=== PATIENT | female | born 2000 | race African-American/Black ===

== ENCOUNTER 2023-05-25 17:41 | Observation (INO) ==
--- NOTE | 2023-05-25 17:49 | ED Triage Note ---
Date of Service May 25, 2023 History of Present Illness This patient was briefly evaluated while in triage. An abbreviated physical exam was performed. This patient is a 22-year-old Female who presents to the ED for evaluation of throat pain. She notes enlarged tonsils. Started yesterday but worsened today around 4pm. She feels dizzy and has been sleeping alot. Physical Exam GENERAL: 22 year old female. In no acute distress. SKIN: No lesions or rashes. THROAT: enlarged tonsils noted, 4+. HEART: Regular rate and rhythm. LUNGS: Clear to auscultation. NEURO: Alert and oriented. No deficits. MUSCULOSKELETAL: No deformities to inspection of the extremities. PSYCH: Patient is pleasant and answers all questions appropriately. Initial orders for labs and / or imaging were placed and patient was placed in the waiting area until a bed is available. Please see further documentation for the full ED course.
[2023-05-25 18:43] LABS: Basophils # (auto) 0.04 K/uL (0-0.2); Basophils % (auto) 0.3 %; Eosinophils # (auto) 0.01 K/uL (0-0.50); Eosinophils % (auto) 0.1 %; Hematocrit (blood only) 33.9 % (37.0-47.0); Immature Granulocytes # (auto) 0.07 K/uL (0.01-0.20); Immature Granulocytes % (auto) 0.5 %; Lymphocytes # (auto) 1.74 K/uL (1.2-3.4); Lymphocytes % (auto) 11.4 %; Mean Corpuscular Hemoglobin 25.3 pg (25.0-34.0); Mean Corpuscular Hgb Conc 32.4 g/dL (32.0-36.0); Mean Corpuscular Volume 77.9 fL (80.0-100.0); Mean Platelet Volume 10.5 fL (9.4-12.4); Monocytes % (auto) 11.2 %; Neutrophils # (auto) 11.64 K/uL (1.40-6.50); Neutrophils % (auto) 76.5 %; Platelet Count 357 K/uL (130-400); RDW Coefficient of Variation 17.2 % (11.5-14.5); RDW Standard Deviation 48.1 fL (36.4-46.3); Red Blood Count 4.35 M/uL (4.20-5.40)
[2023-05-25 18:51] LABS: Monotest Negative (Negative); Pregnancy Test, Serum Negative (Negative)
[2023-05-25 18:53] LABS: Albumin Level 4.2 gm/dl (3.4-5.0); BUN Creatinine Ratio 10.3 (10-20); Bilirubin,Total 0.4 mg/dl (0.2-1.0); Calcium 9.2 mg/dl (8.6-10.3); Creatinine Clr Calc Pharmacy 128.2 ml/min; Est GFR (African American) 125.1 ml/min; Est GFR (Non-African American) 107.9 ml/min; Globulin 4.2 gm/dl (2.5-4.0); Potassium 3.5 mmol/L (3.5-5.1); Total Protein 8.4 gm/dl (6.0-8.3)
[2023-05-25] MEDS ORDERED: AMPICILLIN/SULBACTAM SOD 3,000 MG in 0.9 % SODIUM CHLORIDE 100 ML IV STA (19:29)
[2023-05-25] MEDS ORDERED: dexAMETHasone**PF** 10 MG/ML VIAL IV ONE (19:29)
[2023-05-25] MEDS ORDERED: KETOROLAC TROMETHAMINE 15 MG/ML VIAL IV STA (19:29)
[2023-05-25] MEDS ORDERED: SODIUM CHLORIDE 0.9% 1000ML 1,000 ML IV SCH (19:30)
[2023-05-25] MEDS ORDERED: OPTIRAY 320 100ml IV ONE (20:19)
--- NOTE | 2023-05-25 20:36 | Emergency Department Note ---
History of Present Illness General Chief complaint: Throat Pain Stated complaint: SWOLLEN TONSILS Time Seen by Provider: 05/25/23 19:24 History of Present Illness Maximum Pain Intensity: 10 This is a 22-year-old female that presents to the emergency department via private vehicle with complaints of "swollen tonsils". Patient notes that yesterday she began with a sore throat. This has worsened since yesterday. She notes it is more asymmetric noting the right is more painful than the left. She notes decreased intake orally secondary to pain. She denies any pertinent past medical history. She notes history of knee surgery. No allergies. No fevers. She does note close contact with similar symptoms. Allergies Allergy/AdvReac Type Severity Reaction Status Date / Time No Known Allergies Allergy Verified 02/25/23 18:24 Past Med/Surg History Medical History No pertinent past medical history Surgical History H/O knee surgery Social History Smoking Status: Never smoker Preferred Language: Faroese Feels Safe at Home: Yes Review of Systems A total of 10 systems reviewed and were otherwise negative Physical Exam Vital Signs Vital Signs - 24 hr 05/25/23 17:46 05/25/23 21:23 05/25/23 22:49 Temperature 36.8 C 37.9 C H 37.2 C Temperature Source Temporal Artery Scan Oral Oral Pulse Rate 131 H Pulse Rate [Finger] 113 H 118 H Respiratory Rate 18 20 Respiratory Effort / Characteristics Non-Labored Non-Labored Spontaneous Respiratory Depth Normal Normal Respiratory Pattern Regular Blood Pressure 160/93 H Blood Pressure [Right Arm] 132/82 Blood Pressure Mean 115 Blood Pressure Mean [Right Arm] 98 Pulse Oximetry 100 98 98 Oxygen Delivery Method Room Air Room Air Room Air Sepsis Recent Fever Within 48 Hours No Sepsis New/Unexplained Change in Mental Status No Sepsis Action Taken by Nursing No Action Required 05/26/23 00:02 Temperature Temperature Source Pulse Rate Pulse Rate [Finger] 90 Respiratory Rate 20 Respiratory Effort / Characteristics Non-Labored Spontaneous Respiratory Depth Normal Respiratory Pattern Blood Pressure Blood Pressure [Right Arm] 110/64 Blood Pressure Mean Blood Pressure Mean [Right Arm] 79 Pulse Oximetry 97 Oxygen Delivery Method Room Air Sepsis Recent Fever Within 48 Hours Sepsis New/Unexplained Change in Mental Status Sepsis Action Taken by Nursing VITAL SIGNS - Vital signs and triage nursing notes were reviewed. Tachycardic, otherwise stable. GENERAL -22-year-old female appearing her stated age who is in no acute distress the patient is tired appearing. Communicates well with provider and answers questions appropriately. SKIN - Without rashes. No meningeal or petechial rash. HEAD - NC/AT. EYES - PERRL with EOMI bilaterally. Sclera anicteric. EARS - No deformities of external structures noted on gross examination bilaterally. External auditory canals without discharge or otorrhea. Tympanic membranes pearly singh without retraction or bulging. No fluid or purulent material visualized behind the TM. Handle of malleus, umbo, cone of light, pars tensa/flaccid all easily visualized. NOSE - Midline and without cyanosis. No epistaxis or purulent drainage noted. Septum midline without deviation or septal hematoma noted. MOUTH/OROPHARYNX - Without perioral cyanosis. Buccal mucosa pink and moist and without leukoplakia. There is a 4+ bilateral tonsillar hypertrophy with fullness of the right soft palate. There is no trismus. There is a muffled voice noted. There is no stridor or wheezing noted. Good dentition noted. NECK - Neck with FROM. Supple to palpation. Bilateral anterior cervical lymphadenopathy noted. No nuchal rigidity. LUNGS - Chest wall symmetric without accessory muscle use, intercostals retractions, or central cyanosis. Normal vesicular breath sounds CTA B/L. No w heezes, rales, or rhonchi appreciated. CARDIAC - RRR with S1/S2. No murmur, rubs, or gallops appreciated. EXTREMITIES - No clubbing or peripheral cyanosis. +5/5 strength noted in UE/LE bilaterally. NEUROLOGIC - Cranial nerves II through XII grossly intact. PSYCH - A&O, and cooperates fully with examiner. Pt is very pleasant and interacts well with examiner. Course Administered Medications Discontinued Medications Acetaminophen (Acetaminophen 325 Mg Tab) 650 mg PO NOW STA Stop: 05/25/23 21:49 Last Admin: 05/25/23 22:01 Dose: 650 mg Documented By: BRANDY Dexamethasone Sodium Phosphate (DexamethasonePf 10 Mg/Ml Vial) 10 mg IV NOW ONE Stop: 05/25/23 19:30 Last Admin: 05/25/23 19:37 Dose: 10 mg Documented By: BRANDY Sodium Chloride (Nss 1000ml) 1,000 mls @ 999 mls/hr IV .Q1H1M SERGEY Stop: 05/25/23 20:30 Last Infusion: 05/25/23 21:05 Dose: 0 mls/hr Documented By: Admin: 05/25/23 19:35 Dose: 999 mls/hr Documented By: BRANDY Ampicillin Sodium/Sulbactam Sodium 3,000 mg/ Sodium Chloride 108 mls @ 200 mls/hr IV NOW STA; Protocol Stop: 05/25/23 20:01 Last Infusion: 05/25/23 21:05 Dose: 0 mls/hr Documented By: Admin: 05/25/23 20:30 Dose: 200 mls/hr Documented By: BRANDY Ioversol (Optiray 320 100ml) 94 ml IV ONCE ONE Stop: 05/25/23 20:20 Last Admin: 05/25/23 20:19 Dose: 94 ml Documented By: BUD Ketorolac Tromethamine (Ketorolac Tromethamine 15 Mg/Ml Vial) 15 mg IV NOW STA Stop: 05/25/23 19:30 Last Admin: 05/25/23 19:36 Dose: 15 mg Documented By: BRANDY Medical Decision Making Laboratory Data 05/25/23 18:23 05/25/23 18:23 Lab Results 05/25/23 05/25/23 05/25/23 Range/Units 18:23 18:23 18:23 WBC 15.20 H (4.8-10.8) K/ul RBC 4.35 (4.20-5.40) M/uL Hgb 11.0 L (12.0-16.0) g/dl Hct 33.9 L (37.0-47.0) % MCV 77.9 L (80.0-100.0) fL MCH 25.3 (25.0-34.0) pg MCHC 32.4 (32.0-36.0) g/dL RDW Std Deviation 48.1 H (36.4-46.3) fL RDW Coeff of Blake 17.2 H (11.5-14.5) % Plt Count 357 (130-400) K/uL MPV 10.5 (9.4-12.4) fL Immature Gran % (Auto) 0.5 % Neut % (Auto) 76.5 % Lymph % (Auto) 11.4 % [place] % (Auto) 11.2 % Eos % (Auto) 0.1 % Baso % (Auto) 0.3 % Neut # (Auto) 11.64 H (1.40-6.50) K/uL Lymph # (Auto) 1.74 (1.2-3.4) K/uL [place] # (Auto) 1.70 H (0.11-0.59) K/uL Eos # (Auto) 0.01 (0-0.50) K/uL Baso # (Auto) 0.04 (0-0.2) K/uL Immature Gran # (Auto) 0.07 (0.01-0.20) K/uL Sodium 136 (136-145) mmol/L Potassium 3.5 (3.5-5.1) mmol/L Chloride 100 (98-107) mmol/L Carbon Dioxide 27 (21-32) mmol/L Anion Gap 9 (3-11) BUN 8 (6-23) mg/dl Creatinine 0.78 (0.6-1.2) mg/dl Est Cr Clr Drug Dosing 128.2 ml/min Est GFR ( Amer) 125.1 ml/min Est GFR (Non-Af Amer) 107.9 ml/min BUN/Creatinine Ratio 10.3 (10-20) Glucose 98 (70-99(Fasting)) mg/dl Calcium 9.2 (8.6-10.3) mg/dl Total Bilirubin 0.4 (0.2-1.0) mg/dl AST 15 (13-39) U/L ALT 11 (7-52) U/L Alkaline Phosphatase 80 (34-104) U/L Total Protein 8.4 H (6.0-8.3) gm/dl Albumin 4.2 (3.4-5.0) gm/dl Globulin 4.2 H (2.5-4.0) gm/dl Albumin/Globulin Ratio 1.0 (0.9-2) HCG, Qual Negative (Negative) Monoscreen Negative (Negative) SARS-CoV-2, RNA, NAAT (NEGATIVE) Group A Strep (PCR) (NotDetected) 05/25/23 05/25/23 Range/Units 18:23 22:47 WBC (4.8-10.8) K/ul RBC (4.20-5.40) M/uL Hgb (12.0-16.0) g/dl Hct (37.0-47.0) % MCV (80.0-100.0) fL MCH (25.0-34.0) pg MCHC (32.0-36.0) g/dL RDW Std Deviation (36.4-46.3) fL RDW Coeff of Blake (11.5-14.5) % Plt Count (130-400) K/uL MPV (9.4-12.4) fL Immature Gran % (Auto) % Neut % (Auto) % Lymph % (Auto) % [place] % (Auto) % Eos % (Auto) % Baso % (Auto) % Neut # (Auto) (1.40-6.50) K/uL Lymph # (Auto) (1.2-3.4) K/uL [place] # (Auto) (0.11-0.59) K/uL Eos # (Auto) (0-0.50) K/uL Baso # (Auto) (0-0.2) K/uL Immature Gran # (Auto) (0.01-0.20) K/uL Sodium (136-145) mmol/L Potassium (3.5-5.1) mmol/L Chloride (98-107) mmol/L Carbon Dioxide (21-32) mmol/L Anion Gap (3-11) BUN (6-23) mg/dl Creatinine (0.6-1.2) mg/dl Est Cr Clr Drug Dosing ml/min Est GFR ( Amer) ml/min Est GFR (Non-Af Amer) ml/min BUN/Creatinine Ratio (10-20) Glucose (70-99(Fasting)) mg/dl Calcium (8.6-10.3) mg/dl Total Bilirubin (0.2-1.0) mg/dl AST (13-39) U/L ALT (7-52) U/L Alkaline Phosphatase (34-104) U/L Total Protein (6.0-8.3) gm/dl Albumin (3.4-5.0) gm/dl Globulin (2.5-4.0) gm/dl Albumin/Globulin Ratio (0.9-2) HCG, Qual (Negative) Monoscreen (Negative) SARS-CoV-2, RNA, NAAT NEGATIVE (NEGATIVE) Group A Strep (PCR) DETECTED A (NotDetected) Imaging Data Radiologist's Impression: Soft Tissue Neck CT 05/25/23 19:29 Exam(s): CT NECK With Contrast IV Amt: 94ml optiray 320 EXAM: CT Neck With Intravenous Contrast CLINICAL HISTORY: Reason for exam: Strep pharyngitis, R sided fullness to soft palate. TECHNIQUE: Axial computed tomography images of the neck with intravenous contrast. CTDI is 20.36 mGy and DLP is 495.39 mGy-cm. Automated exposure control was utilized for the study. A dose lowering technique was utilized adhering to the principles of ALARA. CONTRAST: Patient received 94ml optiray 320 of IV contrast COMPARISON: None FINDINGS: Oropharynx: Enlargement of right middle and left palatine tonsils, concerning for tonsillitis. Ill-defined hypoattenuation along the right palatine tonsil is suggestive of peritonsillar phlegmon/developing abscess. Hypopharynx: Unremarkable. Larynx: Unremarkable. Normal epiglottis. Trachea: Unremarkable. Retropharyngeal space: Unremarkable. Submandibular/parotid glands: Unremarkable. Glands are normal in size. Thyroid: Unremarkable. No enlarged or calcified nodules. Bones/joints: No acute fracture. Soft tissues: Unremarkable. Vasculature: No acute findings. Lymph nodes: Mildly prominent cervical lymph nodes are likely reactive. Lung apices: Unremarkable as visualized. IMPRESSION: Enlargement of right middle and left palatine tonsils, concerning for tonsillitis. Ill-defined hypoattenuation along the right palatine tonsil is suggestive of peritonsillar phlegmon/developing abscess. Electronically signed by: Boy Coy M.D. 05/25/23 21:37 PM [facility] Narrative Patient was seen and evaluated as above in room D02. Review was performed of triage nursing notes and vital signs. I did review pertinent previous visits and patient history. After obtaining a thorough history and physical examination the above work up was performed. Patient presents to us today for assessment of a sore throat. Clinically she has a large, 4+ bilateral tonsillar hypertrophy with asymmetric soft palate involvement on the right. She is tachycardic on arrival. Options of care were discussed with the patient. IV access was established. Labs were drawn. There is leukocytosis 15.20. Anemia noted with hemoglobin of 11 without previous for comparison. Patient denies any known history of anemia. There is no emergent metabolic disturbance. Monoscreen negative. hCG negative. Group A strep is positive. With the patient having significant discomfort right greater than left with the soft palate fullness on the right in the setting of today's presentation I do believe that a CT scan soft tissue of the neck is reasonable. Benefit versus risk of imaging discussed with the patient and through shared decision making we will proceed. While awaiting the CT scan patient did receive IV Unasyn, IV Decadron, IV fluids and IV Toradol. It is felt that the benefit of the medication outweighs risk. CT results as above. The patient does have enlargement of right middle and left palatine ton sils concerning for tonsillitis. Ill-defined hypoattenuation along the right palatine tonsil is suggestive of peritonsillar phlegmon/developing abscess. Patient was informed upon todays findings. I did review findings with the on- call ENT surgeon, Dr. Alvarez. Recommendation is inpatient management and treatment via IV steroids, IV antibiotics and he will see the patient while admitted. I relayed these recommendations to the patient. She is amenable to staying. Case then discussed with the hospitalist. Please refer to further documentation regarding her stay. GCS: 15 In the evaluation and treatment of this patient the following differential diagnoses were entertained: Strep pharyngitis, viral pharyngitis, allergic rhinitis with post nasal drip, airway obstruction, head/neck neoplasias, GERD, peritonisllar abscess, epiglottitis, tiwb-pgdz-fin-mouth disease, herpes simplex, mononucleosis, pneumonia, retropharyngeal abscess, scarlet fever, among others. Impression & Plan Acute streptococcal tonsillitis, Abnormal computed tomography of soft tissue of neck, Tachycardia, Leukocytosis Discharge Plan Visit Data Chief Complaint: Throat Pain Stated Complaint: SWOLLEN TONSILS ED Provider: Konrad Cantu ED Midlevel Provider: Bib Camp Discharge Problem: Acute streptococcal tonsillitis, Abnormal computed tomography of soft tissue of neck, Tachycardia, Leukocytosis Patient Disposition: Admitted As Inpatient Condition: Good Forms Stand Alone Forms: [facility] Referrals Referrals: PCP,NO [Primary Care Provider] -
--- NOTE | 2023-05-25 21:38 | CT Scan Report ---
Exam(s): CT NECK With Contrast IV Amt: 94ml optiray 320 EXAM: CT Neck With Intravenous Contrast CLINICAL HISTORY: Reason for exam: Strep pharyngitis, R sided fullness to soft palate. TECHNIQUE: Axial computed tomography images of the neck with intravenous contrast. CTDI is 20.36 mGy and DLP is 495.39 mGy-cm. Automated exposure control was utilized for the study. A dose lowering technique was utilized adhering to the principles of ALARA. CONTRAST: Patient received 94ml optiray 320 of IV contrast COMPARISON: None FINDINGS: Oropharynx: Enlargement of right middle and left palatine tonsils, concerning for tonsillitis. Ill-defined hypoattenuation along the right palatine tonsil is suggestive of peritonsillar phlegmon/developing abscess. Hypopharynx: Unremarkable. Larynx: Unremarkable. Normal epiglottis. Trachea: Unremarkable. Retropharyngeal space: Unremarkable. Submandibular/parotid glands: Unremarkable. Glands are normal in size. Thyroid: Unremarkable. No enlarged or calcified nodules. Bones/joints: No acute fracture. Soft tissues: Unremarkable. Vasculature: No acute findings. Lymph nodes: Mildly prominent cervical lymph nodes are likely reactive. Lung apices: Unremarkable as visualized. IMPRESSION: Enlargement of right middle and left palatine tonsils, concerning for tonsillitis. Ill-defined hypoattenuation along the right palatine tonsil is suggestive of peritonsillar phlegmon/developing abscess. Electronically signed by: Boy Coy M.D. 05/25/23 21:37 PM
[2023-05-25] MEDS ORDERED: ACETAMINOPHEN 325 MG TAB PO STA (21:48)
--- NOTE | 2023-05-26 00:58 | History & Physical Report ---
Date of Service May 26, 2023 Assessment & Plan (1) Sore throat: Plan: 22-year-old female presents with ongoing sore throat since last Wednesday night and found to have positive for strep throat and CAT scan showing possible developing jozef-tonsillar abscess. Strep throat Tonsillitis Possible developing peritonsillar abscess ER notified ENT Received Decadron IV Toradol and Unasyn Symptoms improving We will continue with IV Toradol as needed and IV Unasyn We will keep her n.p.o. for now, IV fluids, IV pain meds as needed Consult ENT in a.m. DVT prophylaxis SCDs Disposition Medical floor History of Present Illness Chief Complaint: Sore throat Primary Care Provider: NO PCP 22-year-old female with no significant past medical history presents with sore throat since last Wednesday night. Denies fevers. Was having difficulty swallowing but right now she is swallowing okay. No shortness of breath. No he adaches. No dizziness. No runny nose. No cough. No chest pain or shortness of breath. No nausea vomiting or abdominal pain. Normal bowel and bladder movements. Currently resting comfortably and hemodynamically stable. Allergies Allergy/AdvReac Type Severity Reaction Status Date / Time No Known Allergies Allergy Verified 02/25/23 18:24 Past Med/Surg History Medical History No pertinent past medical history Surgical History H/O knee surgery Social History Smoking Status: Never smoker Preferred Language: Gabonese Feels Safe at Home: Yes Review of Systems Review of Systems: All systems reviewed & are unremarkable except as noted in Subjective Physical Exam Physical Exam: NEEDS EDITING General- adult Head- atraumatic Eyes-, EOMI, ENT- enlarged tonsils seen ore on right side. Neck- supple, no JVD, Lungs- clear to auscultation and percussion Heart- regular rhythm; no murmur, no gallop, no rub appreciated Abdomen- normal bowel sounds, soft, nontender, no masses or hepatosplenomegaly Extremities- no pretibial edema, no erythema. Neuro- alert, oriented x 3; non focal Skin- warm & dry Results & Data Results & Data Vital Signs (Past 12 Hours) Vital Signs Temp Pulse Pulse Resp BP BP Pulse Ox 05/26/23 00:02 90 20 110/64 97 05/25/23 22:49 37.2 C 118 H 20 132/82 98 05/25/23 21:23 37.9 C H 113 H 98 05/25/23 17:46 36.8 C 131 H 18 160/93 H 100 O2 Del Method 05/26/23 00:02 Room Air 05/25/23 22:49 Room Air 05/25/23 21:23 Room Air 05/25/23 17:46 Room Air Diagnostic Findings Laboratory Results WBC 15.20 K/ul (4.8-10.8) H 05/25/23 18: RBC 4.35 M/uL (4.20-5.40) 05/25/23 18:23 Hgb 11.0 g/dl (12.0-16.0) L 05/25/23 18: Hct 33.9 % (37.0-47.0) L 05/25/23 18: MCV 77.9 fL (80.0-100.0) L 05/25/23 18:23 MCH 25.3 pg (25.0-34.0) 05/25/23 18: MCHC 32.4 g/dL (32.0-36.0) 05/25/23 18: RDW Std Deviation 48.1 fL (36.4-46.3) H 05/25/23 18: RDW Coeff of Blake 17.2 % (11.5-14.5) H 05/25/23 18: Plt Count 357 K/uL (130-400) 05/25/23 18: MPV 10.5 fL (9.4-12.4) 05/25/23 18: Immature Gran % (Auto) 0.5 % 05/25/23 18: Neut % (Auto) 76.5 % 05/25/23 18: Lymph % (Auto) 11.4 % 05/25/23 18: Reeves % (Auto) 11.2 % 05/25/23 18: Eos % (Auto) 0.1 % 05/25/23 18:23 Baso % (Auto) 0.3 % 05/25/23 18:23 Neut # (Auto) 11.64 K/uL (1.40-6.50) H 05/25/23 18: Lymph # (Auto) 1.74 K/uL (1.2-3.4) 05/25/23 18:23 Reeves # (Auto) 1.70 K/uL (0.11-0.59) H 05/25/23 18: Eos # (Auto) 0.01 K/uL (0-0.50) 05/25/23 18: Baso # (Auto) 0.04 K/uL (0-0.2) 05/25/23 18: Immature Gran # (Auto) 0.07 K/uL (0.01-0.20) 05/25/23 18:23 Sodium 136 mmol/L (136-145) 05/25/23 18:23 Potassium 3.5 mmol/L (3.5-5.1) 05/25/23 18: Chloride 100 mmol/L (98-107) 05/25/23 18: Carbon Dioxide 27 mmol/L (21-32) 05/25/23 18:23 Anion Gap 9 (3-11) 05/25/23 18: BUN 8 mg/dl (6-23) 05/25/23 18: Creatinine 0.78 mg/dl (0.6-1.2) 05/25/23 18: Est Cr Clr Drug Dosing 128.2 ml/min 05/25/23 18:23 Est GFR ( Amer) 125.1 ml/min 05/25/23 18: Est GFR (Non-Af Amer) 107.9 ml/min 05/25/23 18: BUN/Creatinine Ratio 10.3 (10-20) 05/25/23 18: Glucose 98 mg/dl (70-99(Fasting)) 05/25/23 18: Calcium 9.2 mg/dl (8.6-10.3) 05/25/23 18: Total Bilirubin 0.4 mg/dl (0.2-1.0) 05/25/23 18: AST 15 U/L (13-39) 05/25/23 18:23 ALT 11 U/L (7-52) 05/25/23 18:23 Alkaline Phosphatase 80 U/L (34-104) 05/25/23 18:23 Total Protein 8.4 gm/dl (6.0-8.3) H 05/25/23 18:23 Albumin 4.2 gm/dl (3.4-5.0) 05/25/23 18:23 Globulin 4.2 gm/dl (2.5-4.0) H 05/25/23 18:23 Albumin/Globulin Ratio 1.0 (0.9-2) 05/25/23 18:23 HCG, Qual Negative (Negative) 05/25/23 18:23 Monoscreen Negative (Negative) 05/25/23 18:23 SARS-CoV-2, RNA, NAAT NEGATIVE (NEGATIVE) 05/25/23 22:47 Group A Strep (PCR) DETECTED (NotDetected) A 05/25/23 18:23 Impressions Soft Tissue Neck CT 05/25/23 19:29 Exam(s): CT NECK With Contrast IV Amt: 94ml optiray 320 EXAM: CT Neck With Intravenous Contrast CLINICAL HISTORY: Reason for exam: Strep pharyngitis, R sided fullness to soft palate. TECHNIQUE: Axial computed tomography images of the neck with intravenous contrast. CTDI is 20.36 mGy and DLP is 495.39 mGy-cm. Automated exposure control was utilized for the study. A dose lowering technique was utilized adhering to the principles of ALARA. CONTRAST: Patient received 94ml optiray 320 of IV contrast COMPARISON: None FINDINGS: Oropharynx: Enlargement of right middle and left palatine tonsils, concerning for tonsillitis. Ill-defined hypoattenuation along the right palatine tonsil is suggestive of peritonsillar phlegmon/developing abscess. Hypopharynx: Unremarkable. Larynx: Unremarkable. Normal epiglottis. Trachea: Unremarkable. Retropharyngeal space: Unremarkable. Submandibular/parotid glands: Unremarkable. Glands are normal in size. Thyroid: Unremarkable. No enlarged or calcified nodules. Bones/joints: No acute fracture. Soft tissues: Unremarkable. Vasculature: No acute findings. Lymph nodes: Mildly prominent cervical lymph nodes are likely reactive. Lung apices: Unremarkable as visualized. IMPRESSION: Enlargement of right middle and left palatine tonsils, concerning for tonsillitis. Ill-defined hypoattenuation along the right palatine tonsil is suggestive of peritonsillar phlegmon/developing abscess. Electronically signed by: Boy Coy M.D. 05/25/23 21:37 PM Code Status & VTE Plan VTE Prophylaxis Plan VTE Prophylaxis will be ordered: Yes
[2023-05-26] MEDS ORDERED: KETOROLAC TROMETHAMINE 15 MG/ML VIAL IV PRN (02:07)
[2023-05-26] MEDS ORDERED: SODIUM CHLORIDE 0.9% 1000ML 1,000 ML IV SCH (02:07)
[2023-05-26] MEDS: AMPICILLIN/SULBACTAM SOD 3,000 MG in 0.9 % SODIUM CHLORIDE 100 ML IV SCH ×4 (02:20→21:27)
[2023-05-26] MEDS: ENOXAPARIN INJ 40 MG/0.4 ML SYR SQ SCH (05:19)
[2023-05-26 07:12] LABS: Hematocrit (blood only) 34.7 % (37.0-47.0); Mean Corpuscular Hemoglobin 24.8 pg (25.0-34.0); Mean Corpuscular Hgb Conc 31.7 g/dL (32.0-36.0); Mean Corpuscular Volume 78.2 fL (80.0-100.0); Mean Platelet Volume 10.3 fL (9.4-12.4); Platelet Count 367 K/uL (130-400); RDW Coefficient of Variation 17.2 % (11.5-14.5); RDW Standard Deviation 48.7 fL (36.4-46.3); Red Blood Count 4.44 M/uL (4.20-5.40)
[2023-05-26 07:30] LABS: BUN Creatinine Ratio 15.2 (10-20); Calcium 8.6 mg/dl (8.6-10.3); Creatinine Clr Calc Pharmacy 154.3 ml/min; Est GFR (African American) 145.3 ml/min; Est GFR (Non-African American) 125.4 ml/min; Magnesium 2.1 mg/dl (1.7-2.4); Potassium 4.3 mmol/L (3.5-5.1)
[2023-05-26 07:37] LABS: Basophils # (auto) 0.03 K/uL (0-0.2); Basophils % (auto) 0.2 %; Immature Granulocytes # (auto) 0.11 K/uL (0.01-0.20); Immature Granulocytes % (auto) 0.6 %; Lymphocytes % (auto) 5.2 %; Monocytes # (auto) 0.65 K/uL (0.11-0.59); Monocytes % (auto) 3.8 %; Neutrophils # (auto) 15.61 K/uL (1.40-6.50); Neutrophils % (auto) 90.2 %
--- NOTE | 2023-05-26 14:02 | History & Physical Report ---
Date of Service May 26, 2023 Assessment & Plan (1) Acute tonsillitis: Plan: Patient has acute tonsillitis. She is doing well on IV antibiotics and steroid. She should continue these for another 24 hours and then can be discharged home on oral antibiotics. This is her only episode so she is not a candidate for tonsillectomy. Admission and Anticipated Discharge Date Admission Date: May 26, 2023 History of Present Illness Chief Complaint: Sore throat Primary Care Provider: NO PCP Patient is a 22-year-old female who presents with a history of sore throat which started 2 days ago. It became worse rather suddenly. He had no difficulty with breathing. She was seen in the emergency department and then admitted. Has not had a previous history of sore throat in the past. She has improved on IV antibiotic therapy and steroids. Allergies Allergy/AdvReac Type Severity Reaction Status Date / Time No Known Allergies Allergy Verified 02/25/23 18:24 Past Med/Surg History Medical History No pertinent past medical history Surgical History H/O knee surgery Social History Smoking Status: Never smoker Hx Alcohol Use: No Hx Substance Use: No Preferred Language: Yoruba Communication Ability: Effective Riddler Operator Required: No Beliefs That Will Affect Care: None Current Living Situation: Other Current Living Situation Comment: lives in a house with roommates Other Information That Helps Us Care for You: No Feels Safe at Home: Yes Safety Concerns: Feels Safe At This Time Assistive Devices: None Review of Systems Review of Systems: Ear: No notable skin lesions. No itching or pain. No drainage or swelling. No hearing loss or tinnitus. No dizziness. No family history of hearing loss or vertigo. No history of recurrent otitis media. No history of swimmers ear. No history of loud noise exposure or ear trauma. Nose and sinuses: No history of nasal obstruction or congestion. No history of nasal discharge or epistaxis. No complaints of dryness or crusting. No facial or dental pain or pressure. No numbness or swelling of the face. No visual changes. No sneezing or itching of the eyes or nose. No known environmental allergies. No family history of allergies. No history of nasal trauma or surgery No history of nasal spray use. Neck: Patient has no swelling in the neck. There is no history of neck infections, neck tumors or skin problems. The patient has no history of thyroid disease and no family history of thyroid disease or thyroid cancer. The patient has not had neck surgery. Physical Exam Physical Exam: General appearance: Patient is alert, appropriately oriented and in no obvious distress with regard to breathing. Ears: Examination of the auricle, pinnae, conchae, tragus, and lobule skin and cartilage was normal. External auditiory canal bony and cartilaginous portions normal with no inflammation or discharge. Tympanic membrane normal. Middle ear space aerated with no fluid. Nose: Examination of the skin overlying the dorsum of the nose is normal. The vestibule is normal and the columella is straight. No nasal valve collapse. Nasal septum is straight. There is normal nasal mucosa with no evidence of polypoid tissue. Oral: Normal lip skin and mucosa. Lingual mucosa is normal. Floor of mouth normal. Buccal mucosa normal. Teeth are normal. Oropharynx: Normal examination, tonsil size 3-4 there is erythema and an exudate medially, Freidman palate position []. Posterior pharyngeal wall normal. Normal base of tongue, lateral pharyngeal wall, valleculae and epiglottis. Larynx and hypopharynx: Normal aryepiglottic folds and postcricoid area. Normal false cords and ventricles. Normal true cords mucosa and movement. Normal subglottis. No tumors, polyps or leukoplakia Neck: No skin lesions. No adenopathy or masses. trachae is midline. No thyroid enlargement, tenderness or masses. Temporomandibular joint []. Patient has no airway compromise. Results & Data Results & Data Vital Signs (Past 12 Hours) Vital Signs Temp Pulse Resp BP Pulse Ox O2 Del Method 05/26/23 08:01 36.7 C 88 16 110/71 99 Room Air 05/26/23 02:00 36.8 C 90 18 108/69 97 Room Air Code Status & VTE Plan VTE Prophylaxis Plan VTE Prophylaxis will be ordered: Yes PG Care Time/CCT Total # of Minutes Spent Total Time Spent with Patient: Total time spent is greater than 50% in coordination of care (as documented) at patient's floor/unit and/or counseling patient: Coding Level of Care Code 34497 INT INP/OBS CARE Diagnoses Acute tonsillitis J03.90
[2023-05-26] MEDS ORDERED: COUGH DROP (SUGAR FREE) LOZ 24 LOZ/1 BOX BUCCAL ONE (15:14)
[2023-05-26] MEDS: ACETAMINOPHEN 325 MG TAB PO PRN (15:22)
--- NOTE | 2023-05-26 19:03 | Hospitalist Progress Note ---
Date of Service May 26, 2023 Assessment & Plan (1) Sore throat: Plan: 22-year-old female presents with ongoing sore throat since last Blake night and found to have positive for strep throat and CAT scan showing possible developing jozef-tonsillar abscess. Acute Tonsillitis Possible developing peritonsillar abscess --Neck CTA:Enlargement of right middle and left palatine tonsils, concerning for tonsillitis. Ill-defined hypoattenuation along the right palatine tonsil is suggestive of peritonsillar phlegmon/developing abscess. --Throat culture growing group B beta strep Continue IV antibiotics with Unasyn Appreciate ENT input Not a candidate for tonsillectomy per ENT Likely discharge tomorrow if continues to improve Pain control Advance diet as tolerated Obesity BMI 38 DVT Px: SCDs Encouraged to ambulate CODE STATUS Full code Admission and Anticipated Discharge Date Admission Date: May 26, 2023 Subjective Patient is seen and examined at bedside Sore throat better today Still has some pain with swallowing Denies any chest pain, dyspnea, dizziness, nausea, vomiting, abdominal pain Tolerating liquid diet Review of Systems Review of Systems: All systems reviewed & are unremarkable except as noted in Subjective Physical Exam Physical Exam: Physical Exam: Vitals signs as noted above General Appearance:Obese, no apparent distress Head: normocephalic, Atraumatic Eyes: normal inspection, EOMI, + tonsillar erythema, exudate Neck: supple, Trachea midline Respiratory/Chest: Normal breath sounds, CTA, No accessory muscle use Cardiovascular: S1, S2, No murmur Abdomen/GI:Soft, Non tender, Bowel sounds present Extremities/Musculoskeletal:normal inspection, no edema Neurologic/Psych:AAOX3, grossly no focal neurological deficits Skin: normal color, warm Results & Data Results & Data Vital Signs (Past 12 Hours) Vital Signs Temp Pulse Resp BP Pulse Ox O2 Del Method 05/26/23 15:50 37.1 C 99 H 18 128/80 99 Room Air 05/26/23 08:01 36.7 C 88 16 110/71 99 Room Air Laboratory Results Short CBC 05/26/23 Range/Units 06:52 WBC 17.30 H (4.8-10.8) K/ul Hgb 11.0 L (12.0-16.0) g/dl Hct 34.7 L (37.0-47.0) % Plt Count 367 (130-400) K/uL BMP 07/12/23 06:52 Sodium 138 Potassium 4.3 D Chloride 106 Carbon Dioxide 27 BUN 10 Creatinine 0.66 Glucose 137 H Calcium 8.6
[2023-05-27] MEDS: ACETAMINOPHEN 325 MG TAB PO PRN ×2 (00:05→12:34)
[2023-05-27] MEDS ORDERED: NITROGLYCERIN SL 0.4 MG/TAB TAB SL STA (00:15)
[2023-05-27] MEDS ORDERED: LORazepam 0.5 MG TAB PO PRN (00:36)
[2023-05-27] MEDS ORDERED: SODIUM CHLORIDE 0.9% 1000ML 1,000 ML IV ONE (00:58)
[2023-05-27 01:02] LABS: Basophils # (auto) 0.03 K/uL (0-0.2); Basophils % (auto) 0.2 %; Hematocrit (blood only) 30.6 % (37.0-47.0); Hemoglobin 10.1 g/dl (12.0-16.0); Immature Granulocytes # (auto) 0.06 K/uL (0.01-0.20); Immature Granulocytes % (auto) 0.3 %; Lymphocytes # (auto) 1.81 K/uL (1.2-3.4); Lymphocytes % (auto) 9.8 %; Mean Corpuscular Hemoglobin 25.3 pg (25.0-34.0); Mean Corpuscular Volume 76.5 fL (80.0-100.0); Mean Platelet Volume 10.5 fL (9.4-12.4); Monocytes # (auto) 1.23 K/uL (0.11-0.59); Monocytes % (auto) 6.7 %; Neutrophils # (auto) 15.25 K/uL (1.40-6.50); Platelet Count 375 K/uL (130-400); RDW Coefficient of Variation 17.1 % (11.5-14.5); RDW Standard Deviation 47.2 fL (36.4-46.3); White Blood Count 18.38 K/ul (4.8-10.8)
[2023-05-27 01:27] LABS: Albumin Globulin Ratio 0.9 (0.9-2); Albumin Level 3.6 gm/dl (3.4-5.0); Bilirubin,Total 0.3 mg/dl (0.2-1.0); Calcium 8.3 mg/dl (8.6-10.3); Creatinine Clr Calc Pharmacy 166.9 ml/min; Est GFR (African American) 149.1 ml/min; Est GFR (Non-African American) 128.7 ml/min; Globulin 3.8 gm/dl (2.5-4.0); Magnesium 2.2 mg/dl (1.7-2.4); Partial Thromboplastin Time 28.2 Seconds (21.0-31.0); Potassium 3.4 mmol/L (3.5-5.1); Total Protein 7.4 gm/dl (6.0-8.3); Troponin I High Sensitivity 6.2 pg/ml (0-14)
[2023-05-27] MEDS ORDERED: POTASSIUM CHLORIDE PWD 20 MEQ PACK PO STA (01:31)
[2023-05-27] MEDS ORDERED: NSS + 20MEQ KCL 20 MEQ/1,000 ML BAG IV ONE (01:32)
[2023-05-27] MEDS: AMPICILLIN/SULBACTAM SOD 3,000 MG in 0.9 % SODIUM CHLORIDE 100 ML IV SCH ×4 (02:05→19:56)
[2023-05-27] MEDS: ENOXAPARIN INJ 40 MG/0.4 ML SYR SQ SCH (05:53)
--- NOTE | 2023-05-27 06:06 | Communication Note ---
Date of Service: May 27, 2023 12 AM Patient complained of left-sided chest pain nonradiating. Patient admits to previous episodes related to anxiety. VS PER RN T: 36.4; HR: 101; RR: 40; BP: 119/81; 100% on RA Some improvement with nitroglycerin. Chest x-ray as per my interpretation no congestion EKG as per my interpretation : Rate 110, sinus tachycardia, normal axis, T wave abnormalities septal leads AP Atypical chest pain secondary to anxiety Some relief with nitroglycerin Function intact. Trend troponin TTE Defer need for ischemic work-up to AM provider.
--- NOTE | 2023-05-27 06:54 | XRay Report ---
XR chest 1V portable CLINICAL HISTORY: cp TECHNIQUE: Single frontal radiograph of the chest was obtained. Comparison: None available at the time of this dictation. FINDINGS: No lines and tubes are seen. The cardiomediastinal silhouette is normal. The lungs are clear. No evid ence of pleural effusion or pneumothorax. IMPRESSION: No acute chest disease. ACT 112: Negative or not required by law. Electronically signed by: Evan Ramos M.D. 05/27/2023 6:53 AM
--- NOTE | 2023-05-27 12:21 | Electrocardiogram Report ---
Test Reason : Blood Pressure : / mmHG Vent. Rate : 108 BPM Atrial Rate : 108 BPM P-R Int : 142 ms QRS Dur : 068 ms QT Int : 328 ms P-R-T Axes : 051 067 035 degrees QTc Int : 439 ms Sinus tachycardia Otherwise normal ECG No previous ECGs available Confirmed by Hasmukh Robertson ([id number]) on 05/27/2023 12:21:08 PM Referred By: REFERRED SELF Confirmed By:Vlad Robertson
--- NOTE | 2023-05-27 18:25 | Hospitalist Progress Note ---
Date of Service May 27, 2023 Assessment & Plan (1) Sore throat: Plan: 22-year-old female presents with ongoing sore throat since last Blake night and found to have positive for strep throat and CAT scan showing possible developing jozef-tonsillar abscess. Acute Tonsillitis Possible developing peritonsillar abscess --Neck CTA:Enlargement of right middle and left palatine tonsils, concerning for tonsillitis. Ill-defined hypoattenuation along the right palatine tonsil is suggestive of peritonsillar phlegmon/developing abscess. --Throat culture grew Group A beta Strep Continue IV Unasyn Appreciate ENT input Not a candidate for tonsillectomy per ENT Pain control Advance diet as tolerated Leukocytosis worsening Continue current management Atypical Chest pain Likely secondary to anxiety Intermittent anxiety chronic per patient --ECHO: Left ventricle wall motion is normal. EF 60 to 65%. Trace mitral and tricuspid regurgitation. Trivial loculated posterior pericardial effusion. Troponins negative Follow-up with Cardiology as outpatient Obesity BMI 38 DVT Px: SCDs Encouraged to ambulate CODE STATUS Full code Admission and Anticipated Discharge Date Admission Date: May 26, 2023 Subjective Patient is seen and examined at bedside Still has some sore throat Tolerating diet Odynophagia improving Had chest pain overnight which she attributes to anxiety Chest pain resolved this morning Denies any dyspnea, dizziness, nausea, vomiting, abdominal pain Review of Systems Review of Systems: All systems reviewed & are unremarkable except as noted in Subjective Physical Exam Physical Exam: Physical Exam: Vitals signs as noted above General Appearance:Obese, no apparent distress Head: normocephalic, Atraumatic Eyes: normal inspection, EOMI, + tonsillar erythema, exudate Neck: supple, Trachea midline Respiratory/Chest: Normal breath sounds, CTA, No accessory muscle use Cardiovascular: S1, S2, No murmur Abdomen/GI:Soft, Non tender, Bowel sounds present Extremities/Musculoskeletal:normal inspection, no edema Neurologic/Psych:AAOX3, grossly no focal neurological deficits Skin: normal color, warm Results & Data Results & Data Vital Signs (Past 12 Hours) Vital Signs Temp Pulse Resp BP Pulse Ox O2 Del Method 05/27/23 15:52 36.9 C 95 H 16 127/76 98 Room Air 05/27/23 07:08 36.9 C 95 H 16 128/80 99 Room Air Laboratory Results Short CBC 05/27/23 Range/Units 00:35 WBC 18.38 H (4.8-10.8) K/ul Hgb 10.1 L (12.0-16.0) g/dl Hct 30.6 L (37.0-47.0) % Plt Count 375 (130-400) K/uL BMP 05/27/23 00:35 Sodium 138 Potassium 3.4 L D Chloride 107 Carbon Dioxide 23 BUN 11 Creatinine 0.61 Glucose 101 H Calcium 8.3 L Liver Function 05/27/23 Range/Units 00:35 Total Bilirubin 0.3 (0.2-1.0) mg/dl AST 14 (13-39) U/L ALT 10 (7-52) U/L Alkaline Phosphatase 64 (34-104) U/L Albumin 3.6 (3.4-5.0) gm/dl
[2023-05-28] MEDS: AMPICILLIN/SULBACTAM SOD 3,000 MG in 0.9 % SODIUM CHLORIDE 100 ML IV SCH ×2 (02:20→07:45)
[2023-05-28] MEDS: ENOXAPARIN INJ 40 MG/0.4 ML SYR SQ SCH (06:44)
[2023-05-28 07:29] LABS: Hematocrit (blood only) 32.1 % (37.0-47.0); Hemoglobin 10.7 g/dl (12.0-16.0); Mean Corpuscular Hemoglobin 24.9 pg (25.0-34.0); Mean Corpuscular Hgb Conc 33.3 g/dL (32.0-36.0); Mean Corpuscular Volume 74.7 fL (80.0-100.0); Mean Platelet Volume 10.2 fL (9.4-12.4); Platelet Count 379 K/uL (130-400); RDW Coefficient of Variation 17.1 % (11.5-14.5); RDW Standard Deviation 45.7 fL (36.4-46.3); White Blood Count 12.81 K/ul (4.8-10.8)
[2023-05-28 07:54] LABS: BUN Creatinine Ratio 10.9 (10-20); Calcium 8.4 mg/dl (8.6-10.3); Creatinine Clr Calc Pharmacy 159.1 ml/min; Est GFR (African American) 146.8 ml/min; Est GFR (Non-African American) 126.7 ml/min; Magnesium 1.9 mg/dl (1.7-2.4); Potassium 3.6 mmol/L (3.5-5.1)
--- NOTE | 2023-05-28 13:04 | Hospitalist Progress Note ---
Date of Service May 28, 2023 Assessment & Plan (1) Sore throat: Plan: 22-year-old female presents with ongoing sore throat since last Wednesday night and found to have positive for strep throat and CAT scan showing possible developing jozef-tonsillar abscess. Acute Tonsillitis Possible developing peritonsillar abscess --Neck CTA:Enlargement of right middle and left palatine tonsils, concerning for tonsillitis. Ill-defined hypoattenuation along the right palatine tonsil is suggestive of peritonsillar phlegmon/developing abscess. --Throat culture grew Group A beta Strep Continue IV Unasyn while hospitalized Appreciate ENT input Not a candidate for tonsillectomy per ENT Pain control Tolerating diet with no issues Leukocytosis improved Plan to discharge on Augmentin to complete the course Atypical Chest pain Likely secondary to anxiety Intermittent anxiety chronic per patient --ECHO: Left ventricle wall motion is normal. EF 60 to 65%. Trace mitral and tricuspid regurgitation. Trivial loculated posterior pericardial effusion. Troponins negative Follow-up with Cardiology as outpatient No recurrence of chest pain Obesity BMI 38 DVT Px: SCDs Encouraged to ambulate CODE STATUS Full code Admission and Anticipated Discharge Date Admission Date: May 26, 2023 Subjective Patient is seen and examined at bedside States feeling much better today No new complaints Sore throat continues to improve Denies any odynophagia today Tolerating current diet Denies any chest pain, dyspnea, dizziness, nausea, vomiting, abdominal pain Plan to discharge home today Review of Systems Review of Systems: All systems reviewed & are unremarkable except as noted in Subjective Physical Exam Physical Exam: Physical Exam: Vitals signs as noted above General Appearance:Obese, no apparent distress Head: normocephalic, Atraumatic Eyes: normal inspection, EOMI, + tonsillar erythema, exudate Neck: supple, Trachea midline Respiratory/Chest: Normal breath sounds, CTA, No accessory muscle use Cardiovascular: S1, S2, No murmur Abdomen/GI:Soft, Non tender, Bowel sounds present Extremities/Musculoskeletal:normal inspection, no edema Neurologic/Psych:AAOX3, grossly no focal neurological deficits Skin: normal color, warm Results & Data Results & Data Vital Signs (Past 12 Hours) Vital Signs Temp Pulse Resp BP Pulse Ox O2 Del Method 05/28/23 06:59 37.5 C 106 H 16 104/67 98 Room Air 05/28/23 01:11 121/76 Laboratory Results Short CBC 05/28/23 Range/Units 07:04 WBC 12.81 H (4.8-10.8) K/ul Hgb 10.7 L (12.0-16.0) g/dl Hct 32.1 L (37.0-47.0) % Plt Count 379 (130-400) K/uL BMP 05/28/23 07:04 Sodium 136 Potassium 3.6 Chloride 104 Carbon Dioxide 25 BUN 7 Creatinine 0.64 Glucose 87 Calcium 8.4 L
--- NOTE | 2023-05-28 13:13 | Discharge Summary ---
Date of Service May 28, 2023 Admission HPI Per Admitting Provider Patient is a 22-year-old female who presents with a history of sore throat which started 2 days ago. It became worse rather suddenly. He had no difficulty with breathing. She was seen in the emergency department and then admitted. Has not had a previous history of sore throat in the past. She has improved on IV antibiotic therapy and steroids. Admission Exam Per Admitting Provider General- adult Head- atraumatic Eyes-, EOMI, ENT- enlarged tonsils seen ore on right side. Neck- supple, no JVD, Lungs- clear to auscultation and percussion Heart- regular rhythm; no murmur, no gallop, no rub appreciated Abdomen- normal bowel sounds, soft, nontender, no masses or hepatosplenomegaly Extremities- no pretibial edema, no erythema. Neuro- alert, oriented x 3; non focal Skin- warm & dry Principal Diagnosis Acute Tonsillitis Discharge Data Allergies Allergy/AdvReac Type Severity Reaction Status Date / Time No Known Allergies Allergy Verified 05/26/23 15:30 Consultations 05/25/23 22:46 ED Decision to Admit Stat 05/26/23 08:00 Consult Otolaryngology (Head and Neck) Routine Procedures Performed Laboratory Results WBC 12.81 K/ul (4.8-10.8) H 05/28/23 07:04 RBC 4.30 M/uL (4.20-5.40) 05/28/23 07:04 Hgb 10.7 g/dl (12.0-16.0) L 05/28/23 07:04 Hct 32.1 % (37.0-47.0) L 05/28/23 07:04 MCV 74.7 fL (80.0-100.0) L 05/28/23 07:04 MCH 24.9 pg (25.0-34.0) L 05/28/23 07:04 MCHC 33.3 g/dL (32.0-36.0) 05/28/23 07:04 RDW Std Deviation 45.7 fL (36.4-46.3) 05/28/23 07:04 RDW Coeff of Blake 17.1 % (11.5-14.5) H 05/28/23 07:04 Plt Count 379 K/uL (130-400) 05/28/23 07:04 MPV 10.2 fL (9.4-12.4) 05/28/23 07:04 Immature Gran % (Auto) 0.3 % 05/27/23 00:35 Neut % (Auto) 83.0 % 05/27/23 00:35 Lymph % (Auto) 9.8 % 05/27/23 00:35 [place] % (Auto) 6.7 % 05/27/23 00:35 Eos % (Auto) 0.0 % 05/27/23 00:35 Baso % (Auto) 0.2 % 05/27/23 00:35 Neut # (Auto) 15.25 K/uL (1.40-6.50) H 05/27/23 00:35 Lymph # (Auto) 1.81 K/uL (1.2-3.4) 05/27/23 00:35 [place] # (Auto) 1.23 K/uL (0.11-0.59) H 05/27/23 00:35 Eos # (Auto) 0.00 K/uL (0-0.50) 05/27/23 00:35 Baso # (Auto) 0.03 K/uL (0-0.2) 05/27/23 00:35 Immature Gran # (Auto) 0.06 K/uL (0.01-0.20) 05/27/23 00:35 APTT 28.2 Seconds (21.0-31.0) 05/27/23 00:35 PTT Ratio 1.0 05/27/23 00:35 Sodium 136 mmol/L (136-145) 05/28/23 07:04 Potassium 3.6 mmol/L (3.5-5.1) 05/28/23 07:04 Chloride 104 mmol/L (98-107) 05/28/23 07:04 Carbon Dioxide 25 mmol/L (21-32) 05/28/23 07:04 Anion Gap 7 (3-11) 05/28/23 07:04 BUN 7 mg/dl (6-23) 05/28/23 07:04 Creatinine 0.64 mg/dl (0.6-1.2) 05/28/23 07:04 Est Cr Clr Drug Dosing 159.1 ml/min 05/28/23 07:04 Est GFR ( Amer) 146.8 ml/min 05/28/23 07:04 Est GFR (Non-Af Amer) 126.7 ml/min 05/28/23 07:04 BUN/Creatinine Ratio 10.9 (10-20) 05/28/23 07:04 Glucose 87 mg/dl (70-99(Fasting)) 05/28/23 07:04 Calcium 8.4 mg/dl (8.6-10.3) L 05/28/23 07:04 Magnesium 1.9 mg/dl (1.7-2.4) 05/28/23 07:04 Total Bilirubin 0.3 mg/dl (0.2-1.0) 05/27/23 00:35 AST 14 U/L (13-39) 05/27/23 00:35 ALT 10 U/L (7-52) 05/27/23 00:35 Alkaline Phosphatase 64 U/L (34-104) 05/27/23 00:35 Troponin I High Sens 6.4 pg/ml (0-14) 05/27/23 05:23 Total Protein 7.4 gm/dl (6.0-8.3) 05/27/23 00:35 Albumin 3.6 gm/dl (3.4-5.0) 05/27/23 00:35 Globulin 3.8 gm/dl (2.5-4.0) 05/27/23 00:35 Albumin/Globulin Ratio 0.9 (0.9-2) 05/27/23 00:35 HCG, Qual Negative (Negative) 05/25/23 18:23 Monoscreen Negative (Negative) 05/25/23 18:23 SARS-CoV-2, RNA, NAAT NEGATIVE (NEGATIVE) 05/25/23 22:47 Group A Strep (PCR) DETECTED (NotDetected) A 05/25/23 18:23 Impressions Soft Tissue Neck CT 05/25/23 19:29 Exam(s): CT NECK With Contrast IV Amt: 94ml optiray 320 EXAM: CT Neck With Intravenous Contrast CLINICAL HISTORY: Reason for exam: Strep pharyngitis, R sided fullness to soft palate. TECHNIQUE: Axial computed tomography images of the neck with intravenous contrast. CTDI is 20.36 mGy and DLP is 495.39 mGy-cm. Automated exposure control was utilized for the study. A dose lowering technique was utilized adhering to the principles of ALARA. CONTRAST: Patient received 94ml optiray 320 of IV contrast COMPARISON: None FINDINGS: Oropharynx: Enlargement of right middle and left palatine tonsils, concerning for tonsillitis. Ill-defined hypoattenuation along the right palatine tonsil is suggestive of peritonsillar phlegmon/developing abscess. Hypopharynx: Unremarkable. Larynx: Unremarkable. Normal epiglottis. Trachea: Unremarkable. Retropharyngeal space: Unremarkable. Submandibular/parotid glands: Unremarkable. Glands are normal in size. Thyroid: Unremarkable. No enlarged or calcified nodules. Bones/joints: No acute fracture. Soft tissues: Unremarkable. Vasculature: No acute findings. Lymph nodes: Mildly prominent cervical lymph nodes are likely reactive. Lung apices: Unremarkable as visualized. IMPRESSION: Enlargement of right middle and left palatine tonsils, concerning for tonsillitis. Ill-defined hypoattenuation along the right palatine tonsil is suggestive of peritonsillar phlegmon/developing abscess. Electronically signed by: Boy Coy M.D. 05/25/23 21:37 PM Chest X-Ray 05/27/23 00:36 XR chest 1V portable CLINICAL HISTORY: cp TECHNIQUE: Single frontal radiograph of the chest was obtained. Comparison: None available at the time of this dictation. FINDINGS: No lines and tubes are seen. The cardiomediastinal silhouette is normal. The lungs are clear. No evidence of pleural effusion or pneumothorax. IMPRESSION: No acute chest disease. ACT 112: Negative or not required by law. Electronically signed by: Evan Ramos M.D. 05/27/2023 6:53 AM Ordered Studies 05/25/23 19:29 CT soft tissue neck w con Stat Hospital Course (1) Sore throat: 22-year-old female presents with ongoing sore throat since last Blake night and found to have positive for strep throat and CAT scan showing possible developing jozef-tonsillar abscess. Acute Tonsillitis Possible developing peritonsillar abscess --Neck CTA:Enlargement of right middle and left palatine tonsils, concerning for tonsillitis. Ill-defined hypoattenuation along the right palatine tonsil is suggestive of peritonsillar phlegmon/developing abscess. --Throat culture grew Group A beta Strep Continue IV Unasyn while hospitalized Appreciate ENT input Not a candidate for tonsillectomy per ENT Pain control Tolerating diet with no issues Leukocytosis improved Plan to discharge on Augmentin to complete the course Atypical Chest pain Likely secondary to anxiety Intermittent anxiety chronic per patient --ECHO: Left ventricle wall motion is normal. EF 60 to 65%. Trace mitral and tricuspid regurgitation. Trivial loculated posterior pericardial effusion. Troponins negative Follow-up with Cardiology as outpatient No recurrence of chest pain Obesity BMI 38 DVT Px: SCDs Encouraged to ambulate CODE STATUS Full code Total Time Total Time Spent Total Time Spent (In Minutes): 45 minutes Discharge Plan Discharge Items Patient Disposition: Home - Self-Care Reason For Visit: SORE THROAT Discharge Diagnosis: Acute Tonsillitis Condition on Discharge: Good Activity: Per Instructions section Exercise/Sports: Gradually increase as tolerated Non-emergency contact: Primary Care Provider Call non-emergency contact if: you have any medication questions, your symptoms worsen, your pain is concerning for you and you have a fever Follow-up/Referrals: PCP,NO [Primary Care Provider] - Diet: Heart Healthy Diet Texture: Easy to Chew Addtl Attending Provider Instructions: Follow-up with your primary care physician in 1 week. Consider following with your ENT Dr.Norman Alvarez if your symptoms continue to persist/do not resolve. --- Complete antibiotic course Augmentin as prescribed. Seek immediate medical attention if your symptoms reoccur or worsen Please take all medications as instructed on discharge list below. Please call if you have any questions or problems. You can reach a [facility] hospitalist on duty at [facility] 24 hours a day by calling [phone] Pending Studies at Discharge: No Stand-Alone Forms: My [facility], Smoking Cessation Medications and DC Order Prescriptions: New Advanced Probiotic 625 mg (10 billion cell) Capsule 2 cap PO DAILY Qty: 30 0RF amoxicillin-pot clavulanate 875-125 mg tablet 1 tab PO BID Qty: 16 0RF Discharge Orders: Discharge Order (Routine); Ordered 05/28/23 Ordered By: Hilario Colby Admission Data Admit Date/Time: 05/26/23 00:44 Attending Provider: Hilario Colby Admit Provider: Eric Acosta Primary Care Provider: PCP,NO Other Providers: Eric Acosta ; Blaine Alvarez
[2023-05-29] MEDS ORDERED: ADVANCED PROBIOTIC 1250 MG CAPSULE PO SCH (09:00)
== END 2023-05-28 14:10 | disposition home or self-care (01) | DRG 153 ==
LOC: ED 17:41 → SUATTDRO 05-26 00:44 → INTOOBSV 05-26 00:44 → 3E 05-26 00:44